=== PATIENT | female | born 1990 | race Hispanic/Latino ===

== ENCOUNTER 2024-04-23 20:44 | Inpatient (IN) | payer OTHER ==
[~2024-04-23 20:44] MED LIST: Bupivacaine 0.25% HCL 30 ML VIAL ONE; ePHEDrine Sulfate 50 MG/10 ML VIAL ONE
[2024-04-23 21:33] VITALS: BMI 32.2
[2024-04-23] MEDS ORDERED: hydrALAZINE 20 MG/ML VIAL SLOW IVP PRN ×2 (22:23→23:17)
[2024-04-23] MEDS ORDERED: Carboprost 250 MCG/ML AMP IM PRN (23:17)
[2024-04-23] MEDS ORDERED: Diphenoxylate HCl/Atropine Tablet PO PRN (23:17)
[2024-04-23] MEDS ORDERED: Methylergonovine 0.2 MG/ML VIAL IM PRN (23:17)
[2024-04-23] MEDS ORDERED: Promethazine HCl 25 MG/ML VIAL IM PRN (23:17)
[2024-04-23] MEDS ORDERED: fentaNYL 50 mcg/mL 1 mL Vial SLOW IVP PRN (23:17)
[2024-04-23] MEDS ORDERED: Tranexamic Acid 1,000 MG/10 ML VIAL IVP PRN (23:17)
[2024-04-23] MEDS ORDERED: Ondansetron PF 4 MG/2 ML Vial IVP PRN (23:17)
[2024-04-23] MEDS ORDERED: Docusate 100 MG CAP PO PRN (23:17)
[2024-04-23] MEDS ORDERED: Lidocaine 1% (PF) 30 ML VIAL SC PRN (23:17)
[2024-04-23] MEDS ORDERED: Acetaminophen 500 MG TAB PO PRN (23:17)
[2024-04-23] MEDS: Lactated Ringer's 1,000 ML IV SCH (23:20)
[2024-04-23] MEDS ORDERED: Oxytocin 30 units/NS 500 ML 500 ML IV SCH (23:30)
[2024-04-23 23:39] LABS: Hematocrit 33.4 % (34.9-44.5); Hemoglobin 11.3 g/dL (12.0-15.5); Mean Corpuscular HGB CONC 33.8 g/dL (32.0-36.0); Mean Corpuscular Hemoglobin 27.6 pg (27.0-33.0); Mean Corpuscular Volume 81.7 fL (81.6-98.3); Mean Platelet Volume 9.7 fL (7.4-10.4); Platelet Count 296 10x3/uL (150-450); RBC Distribution Width 14.8 % (11.5-14.5); Red Blood Cell (RBC) Count 4.09 10x6/uL (3.90-5.03); White Blood Cell (WBC) Count 15.6 10x3/uL (3.5-10.5)
[2024-04-23] MEDS: Penicillin G Potassium 5 MILL.UNITS in Sodium Chloride 0.9% 100 ML IVPB SCH (23:43)
[2024-04-24] MEDS: fentaNYL/Ropivacaine Epidural 100 ML ONE (00:09)
[2024-04-24 00:14] LABS: Syphilis Antibody Nonreactive (Nonreactive); Syphilis Antibody Index 0.04 S/CO (<1.00 Non-Reactive)
[2024-04-24 00:15] LABS: HBsAg Index 0.16 S/CO (0-0.99); Hep B Surf Ag - L&D Non-Reactive S/CO (NonReactive)
[2024-04-24] MEDS ORDERED: Moisturizing Cream (Eucerin) 113 GM JAR TOP PRN (00:26)
[2024-04-24] MEDS ORDERED: Naloxone HCl 0.4 mg/ml Vial IVP PRN ×2 (00:26)
[2024-04-24] MEDS ORDERED: Promethazine HCl 25 MG/ML VIAL IM PRN ×2 (00:26→12:44)
[2024-04-24] MEDS ORDERED: Acetaminophen 325 MG TAB PO PRN (00:26)
[2024-04-24] MEDS ORDERED: diphenhydrAMINE 50 MG/ML VIAL IVP PRN (00:26)
[2024-04-24] MEDS ORDERED: Lactated Ringer's 500 ML IV PRN (00:26)
[2024-04-24] MEDS ORDERED: Ondansetron PF 4 MG/2 ML Vial IVP PRN ×2 (00:26→12:44)
[2024-04-24] MEDS ORDERED: Communication Order-Pharmacy FS SCH (00:30)
[2024-04-24] MEDS: ePHEDrine Sulfate 50 MG/10 ML VIAL SLOW IVP PRN (00:37)
[2024-04-24] MEDS: Penicillin G 2.5 MILL.units 2.5 MILL.UNITS in Premix 1 BAG IVPB SCH (03:49)
[2024-04-24] MEDS: Oxytocin 30 units/NS 500 ML 500 ML IVPB SCH (08:58)
[2024-04-24] MEDS: fentaNYL 2 mcg/Ropivacaine 0.2% Epidural 100 ML CADD EPIDURAL SCH (09:10)
[2024-04-24] MEDS: Misoprostol 200 MCG TAB PR PRN (11:05)
[2024-04-24] MEDS ORDERED: Milk Of Magnesia 30 ML UDCUP PO PRN (12:44)
[2024-04-24] MEDS ORDERED: Preparation H Ointment 28 GM TUBE PR PRN (12:44)
[2024-04-24] MEDS ORDERED: Bisacodyl 10 MG SUPP PR PRN (12:44)
[2024-04-24] MEDS ORDERED: hydrALAZINE 20 MG/ML VIAL SLOW IVP PRN (12:44)
[2024-04-24] MEDS ORDERED: Lanolin Ointment 7 GM TUBE TOP PRN (12:44)
[2024-04-24] MEDS ORDERED: HYDROcodone/Acetaminophen 5/325 mg Tablet PO PRN (12:44)
[2024-04-24] MEDS ORDERED: diphenhydrAMINE 25 MG CAP PO PRN (12:44)
[2024-04-24] MEDS: Ibuprofen 800 MG TAB PO SCH (12:54)
[2024-04-24] MEDS: Benzocaine-Menthol 82.5 ML CAN TOP PRN (12:54)
[2024-04-24] MEDS: HYDROcodone/Acetaminophen 5/325 mg Tablet PO PRN (16:45)
[2024-04-24] MEDS: Azithromycin 500 MG VIAL ONE (19:07)
[2024-04-24] MEDS: Ferrous Sulfate 325 MG TAB PO SCH (19:07)
[2024-04-24] MEDS: Prenatal Vitamin 1 TAB PO SCH (19:07)
[2024-04-24] MEDS: CEFAZOLIN 2 GM VIAL ONE (19:07)
[2024-04-24] MEDS: Docusate 100 MG CAP PO SCH (21:59)
[2024-04-25 04:02] LABS: Hematocrit 27.2 % (34.9-44.5); Mean Corpuscular HGB CONC 33.1 g/dL (32.0-36.0); Mean Corpuscular Hemoglobin 27.4 pg (27.0-33.0); Mean Corpuscular Volume 82.9 fL (81.6-98.3); Mean Platelet Volume 9.4 fL (7.4-10.4); Platelet Count 257 10x3/uL (150-450); RBC Distribution Width 15.1 % (11.5-14.5); Red Blood Cell (RBC) Count 3.28 10x6/uL (3.90-5.03); White Blood Cell (WBC) Count 18.1 10x3/uL (3.5-10.5)
[2024-04-25] MEDS ORDERED: Acetaminophen 500 MG TAB PO PRN (08:30)
[2024-04-25] MEDS: Simethicone Chewable 80 MG TAB PO PRN (15:35)
[2024-04-25] MEDS: Boostrix 0.5 ML (Tdap) VIAL (>/=7 yrs of age) IM ONE (15:51)
[2024-04-26 10:38] VITALS: BP 121/65; TEMP 98.1
== END 2024-04-26 15:05 | disposition home or self-care (01) | DRG 807 ==
LOC: CSHLD/OP 20:44 → CSHLD 23:13 → CSHPP 04-24 18:35
PROVIDERS: ADMIT Student in an Organized Health Care Education/Training Program; ATTEND Student in an Organized Health Care Education/Training Program
PROC: 10E0XZZ Delivery of Products of Conception, External Approach (ICD-10-PCS; principal; 2024-04-24)
PROC: 0KQM0ZZ Repair Perineum Muscle, Open Approach (ICD-10-PCS; 2024-04-24)
DX: O48.0 Post-term pregnancy (principal); Z37.0 Single live birth; O99.824 Streptococcus B carrier state complicating childbirth; O34.211 Maternal care for low transverse scar from previous cesarean delivery; O70.1 Second degree perineal laceration during delivery; O69.81X0 Labor and delivery complicated by cord around neck, without compression, not applicable or unspecified; Z3A.40 40 weeks gestation of pregnancy; O26.893 Other specified pregnancy related conditions, third trimester; Z67.41 Type O blood, Rh negative
CPT/HCPCS: 36415; 51702; 85027; 85461; 86780; 86850; 86900; 86901; 87340; 90384; 96372; 99285; J0665; J2540; J2590; J7120